=== PATIENT | male | born 1985 | race Caucasian/White ===

== ENCOUNTER 2024-11-05 10:30 | Emergency (ER) | payer SELFPAY ==
[2024-11-05 11:46] LABS: Absolute Basophils 0.1 K/uL (0-0.5); Absolute Eosinophils 0.3 K/uL (0-0.5); Absolute Monocytes 0.8 K/uL (0.1-1.3); Absolute Neutrophil 6.5 K/uL (1.8-8.0); Basophils % 0.9 % (0-1.3); Eosinophils % 2.6 % (0-4.4); Hematocrit 41.3 % (39.6-49.0); Hemoglobin 14.3 g/dL (13.6-17.9); Lymphocytes % 20.8 % (15.3-44.8); MCH 29.8 pg (27.0-35.0); MCHC 34.5 g/dL (32.0-36.0); MCV 86.4 fL (80-100); MPV 8.3 fL (7.6-11.3); Monocytes % 8.7 % (3.3-12.3); Nucleated Red Blood Cells % 0.1 % (0-0); Platelets 324 thou/uL (152-406); RBC Red Blood Cell Count 4.78 M/uL (4.33-5.43); Red Cell Distribution Width 13.6 % (12.1-15.2)
[2024-11-05 11:57] LABS: Specific Gravity 1.014 (1.005-1.030); Urine Bilirubin NEGATIVE (Negative); Urine Blood Negative (Negative); Urine Clarity Clear (Clear); Urine Color Colorless (Yellow); Urine Glucose NEGATIVE (Negative); Urine Ketones NEGATIVE (Negative); Urine Microscopic Reflex YN NO UMIC; Urine Nitrite NEGATIVE (Negative); Urine Protein NEGATIVE (Negative); Urine Urobilinogen Normal (Normal); Urine pH 6.5 (5.0-7.0)
--- NOTE | 2024-11-05 12:21 | RAD REPORT ---
EXAMINATION: CT Abdomen Pelvis Wo Contrast CLINICAL INDICATION: Male, 39 years old. FLANK PAIN TECHNIQUE: CT abdomen and pelvis was performed, without IV contrast, as per department protocol. Axia l, sagittal and coronal reconstructions were obtained. One or more of the following dose reduction techniques were used: Automated exposure control, adjustment of the mA and kV according to the patien t size, and iterative reconstruction. Unless otherwise specified, incidental findings do not require dedicated imaging follow-up. COMPARISON: No prior exam. FINDINGS: The lack of intravenous contrast limits the sensitivity of this exam for evaluation of solid visceral organs, vascular structures, and retroperitoneum. LOWER CHEST: The visualized lung bases are clear. LIVER: Diffuse hepatic parenchymal hypoattenuation suggesting steatosis, with mild hepatomegaly espec ially along the right lobe. Smooth contour.. No focal lesion. BILIARY SYSTEM: Gallbladder is decompressed which limits evaluation. No suspicious abnormalities. SPLEEN: Normal size. No focal lesion. PANCREAS: No mass, ductal dilation, or leslie-pancreatic fluid. ADRENALS: Normal; no mass. KIDNEYS AND URETERS: Normal size and contour. No hydronephrosis. URINARY BLADDER: Normal contour. GASTROINTESTINAL TRACT: No evidence of bowel obstruction, significant free fluid, free air or abscess . APPENDIX: Normal appendix. LYMPH NODES: No lymphadenopathy. MUSCULOSKELETAL: Disc osteophyte complex at L5-S1 asymmetric to the right, contributing to a degree o f central canal stenosis and bilateral moderate to severe neural foraminal narrowing worse on the right. ADDITIONAL FINDINGS: None. IMPRESSION: No acute abnormalities within the abdomen or pelvis, with evaluation limited by lack of IV contrast. Disc osteophyte complex at L5-S1 as above, possibly contributing to encroachment upon the neural stru ctures, not well evaluated. If this is felt to relate to the patient's symptoms, additional evaluation by lumbar spine MRI would be more helpful, which can be done on nonemergent basis. Diffuse hepatic steatosis.
[2024-11-05 12:40] LABS: Anion Gap 6.9 mEq/L (5.0-15.0); Bilirubin Total 0.4 mg/dL (0.2-1.0); Globulin 3.9 g/dL (2.3-3.5); Potassium 3.9 mEq/L (3.5-5.1); Protein, Total 7.9 g/dL (6.4-8.2)
[2024-11-05] MEDS ORDERED: KETOROLAC 30 MG/ML INJ ONE (12:43)
[2024-11-05] MEDS ORDERED: NA CHLORIDE 0.9% 500 ML ONE (12:43)
--- NOTE | 2024-11-05 13:27 | RAD REPORT ---
EXAMINATION: CT LUMBAR SPINE WITHOUT CONTRAST CLINICAL INDICATION: Male, 39 years old. LOWER BACK PAIN TECHNIQUE: Axial CT images were obtained through the lumbar spine in soft tissue and bone windows wit hout intravenous contrast. Coronal and Sagittal reformatted images were created from the data set. One or more of the following dose reduction techniques were used: Automated exposure control, adjustm ent of the mA and/ or kV according to patient size, and/or iterative reconstruction. Unless otherwise specified, incidental findings do not require dedicated imaging follow-up. COMPARISON: No prior exam. FINDINGS: For purposes of this dictation, it is assumed that there are 5 non rib-bearing lumbar type vertebrae, and the most caudal fully segmented lumbar vertebra is labeled L5. ALIGNMENT: The lumbar spine demonstrates normal alignment without scoliosis or spondylolisthesis. BONES: No significant soft tissue abnormalities. No aggressive osseous lesions. DISCS: Prominent disc protrusion suspected greater towards the left at L4-5. Large disc herniation pascal spected with some calcification L5-S1. LEVELS: There is likely moderate to significant canal narrowing at L4-5 and L5-S1. SOFT TISSUE: No soft tissue abnormalities. IMPRESSION: Moderate to significant lower lumbar spondylosis as detailed. Nonemergent MRI follow-up recommended.
--- NOTE | 2024-11-05 13:55 | EDPHYS ---
Physician Documentation [facility] Name: Romaine Archibald Age: 39 yrs Sex: Male : 1985 Arrival Date: 11/05/2024 Time: 10:30 Bed 16 Private MD: ED Physician Cheko Duran HPI: 11/05 12:42 This 39 yrs old Male presents to ER via Ambulatory with complaints of Back Pain, ci Urinary Problem. 12:42 Patient is a 39-year-old male with no PMH who presents to the ED with dysuria, ci frequency and suprapubic pressure that is radiating to the lower back. Patient took Azo with no improvement. Patient called telemetry doc and was prescribed Macrobid, has been taking this with no improvement. Denies any fever, trauma, history of kidney stones. No nausea/vomiting. Historical: - Allergies: 10:48 No Known Allergies; cm10 - Home Meds: 10:48 None [Active]; cm10 - PMHx: 10:48 None; cm10 - PSHx: 10:48 None; cm10 - Immunization history:: Adult Immunizations up to date. - Infectious Disease History:: Denies. - Social history:: Smoking status: Patient denies any tobacco usage or history of. Vital Signs: 10:46 BP 101 / 75; Pulse 77; Resp 15; Temp 98.3(O); Pulse Ox 97% on R/A; Weight 74.84 kg (R); cm10 Height 5 ft. 8 in. (R); Pain 7/10; 12:57 BP 130 / 84; Pulse 66; Resp 16 S; Pulse Ox 100% on R/A; kc6 10:46 Body Mass Index 25.09 (74.84 kg, 172.72 cm) cm10 10:46 Pain Scale: Adult cm10 MDM: 10:53 Medical Screening Exam initiated ci 11/05 11:09 Order name: CBC with Diff; Complete Time: 12:36 ci 11/05 11:09 Order name: CMP; Complete Time: 13:07 ci 11/05 11:09 Order name: Lipase; Complete Time: 13:07 ci 11/05 11:09 Order name: Urinalysis w/ reflexes; Complete Time: 12:36 ci 11/05 11:09 Order name: CT Abd/Pelvis - Without Contrast; Complete Time: 12:36 ci 11/05 12:40 Order name: CT Lumbar Spine Wo Con; Complete Time: 13:52 ci 11/05 13:52 Interpretation: Per Radiologist's finding(s): Moderate to significant lower lumbar ci spondylosis as detailed. Nonemergent MRI follow-up recommended. 11/05 11:09 Order name: IV Saline Lock; Complete Time: 11:40 ci 11/05 11:09 Order name: Labs collected and sent; Complete Time: 11:40 ci Administered Medications: 12:57 Drug: Ketorolac IVP 15 mg IVP once Route: IVP; Site: right forearm; kc6 13:15 Follow up: Response: No adverse reaction kc6 12:57 Drug: NS 0.9% IV 500 ml 500 ml IV at 1 bolus once; to be given as a bolus over 30 kc6 minutes Volume: 500 ml; Route: IV; Rate: 1 bolus; Site: right forearm; 14:08 Follow up: Response: No adverse reaction; IV Status: Completed infusion; IV Intake: kc6 500ml Disposition Summary: 11/05/24 13:54 Discharge Ordered Notes: Location: Home ci Condition: Stable ci Diagnosis - Spondylolysis, lumbar region ci - Acute cystitis without hematuria ci Followup: ci - With: Private Physician - When: 2 - 3 days - Reason: Recheck today's complaints, Re-evaluation by your physician Discharge Instructions: - Discharge Summary Sheet kc6 - Acute Back Pain, Adult ci - Dysuria ci Forms: - Work release form kc6 - Medication Reconciliation Form ci - Antibiotic Education ci - Prescription Opioid Use ci - Patient Portal Instructions ci - Leadership Thank You Letter ci Prescriptions: - Anaprox DS 550 mg Oral Tablet - take 1 tablet ORAL route every 12 hours As needed; 20 tablet; Refills: 0, ci Product Selection Permitted - Cephalexin 500 mg Oral Capsule - take 1 capsule ORAL route every 12 hours for 10 days; 20 capsule; Refills: 0, ci Product Selection Permitted - Pyridium 200 mg Oral Tablet - take 1 tablet ORAL route every 8 hours for 3 days; 9 tablet; Refills: 0, ci Product Selection Permitted Addendum: 13:00 Addendum: ROS: Positive back pain, dysuria, suprapubic pressure. Negative fever, c i trauma, paresthesia, bowel/bladder dysfunction Physical exam: Back atraumatic. No C/T/L bony midline tenderness. No step-offs or deformity, DTR 2/4 to bilateral lower extremity. Abdomen: Soft, nondistended with mild suprapubic tenderness to palpation. No rebound tenderness or rigidity, no CVA tenderness. DDx considered but not limited to UTI, pyelonephritis, nephrolithiasis, muscle strain/sprain, fracture ED course: Patient arrived to the ED hemodynamically stable and in no acute distress. CBC with no leukocytosis or anemia, currently being treated for UTI with Macrobid. CT abdomen/pelvis was obtained for further investigation, no kidney stones, no SBO or perforation noted. Lumbar spondylosis noted on CT abdomen. Dedicated CT lumbar spine was obtained which showed moderate spondylosis with recommendations for nonemergent MRI. Patient was given pain meds in the ER with significant improvement. Ambulatory with a steady gait, doubt cauda equina, discitis or epidural abscess. Stable for discharge with close outpatient follow-up with neurosurgery, PCP and urology. Instructed to return to ER for new or worsening symptoms. Patient verbalized understanding and agrees with plan.. Signatures: Dispatcher [employer] EDMS Thelma Triplett RN RN kc6 Frances Hollingsworth RN RN cm10 Cheko Duran Corrections: (The following items were deleted from the chart) 11:10 11:10 Abdomen Pelvis Wo Con+CT.RAD.BRZ ordered. EDMS EDMS 12:40 12:40 Spine Lumbar Wo Con+CT.RAD.BRZ ordered. EDMS EDMS
--- NOTE | 2024-11-05 13:55 | ER ---
Nurse's Notes [facility] Name: Romaine Archibald Age: 39 yrs Sex: Male : 1985 Arrival Date: 11/05/2024 Time: 10:30 Bed 16 Private MD: Diagnosis: Spondylolysis, lumbar region;Acute cystitis without hematuria Presentation: 11/05 10:46 Chief complaint: Patient states: low back pain onset 2 weeks ago. pt reports lower cm10 abdominal pressure, urinary frequency. Pt reports that he had a teledoc appointment and was placed on macrobid with no relief. Coronavirus screen: Client denies travel out of the [place] in the last 14 days. Ebola Screen: Patient denies travel to an Ebola-affected area in the 21 days before illness onset. Initial Sepsis Screen: Does the patient meet any 2 criteria? No. Patient's initial sepsis screen is negative. Does the patient have a suspected source of infection? No. Patient's initial sepsis screen is negative. Risk Assessment: Do you want to hurt yourself or someone else? Patient reports no desire to harm self or others. Onset of symptoms is unknown. 10:46 Method Of Arrival: Ambulatory cm10 10:46 Acuity: LINNEA 3 cm10 Triage Assessment: 10:48 General: Appears uncomfortable, Behavior is calm, cooperative. Pain: Complains of pain cm10 in low back area, right lower quadrant and left lower quadrant Pain currently is 7 out of 10 on a pain scale. Quality of pain is described as pressure. Neuro: No deficits noted. Level of Consciousness is awake, alert, obeys commands, Oriented to person, place, time, situation, Appropriate for age. Respiratory: No deficits noted. Airway is patent Respiratory effort is even, unlabored, Respiratory pattern is regular, symmetrical. Historical: - Allergies: 10:48 No Known Allergies; cm10 - Home Meds: 10:48 None [Active]; cm10 - PMHx: 10:48 None; cm10 - PSHx: 10:48 None; cm10 - Immunization history:: Adult Immunizations up to date. - Infectious Disease History:: Denies. - Social history:: Smoking status: Patient denies any tobacco usage or history of. Screenin:40 [facility] [place] ED Fall Risk Assessment (Adult) History of falling in the last 3 months, kc6 including since admission No falls in past 3 months (0 pts) Confusion or Disorientation No (0 pts) Intoxicated or Sedated No (0 pts) Impaired Gait No (0 pts) Mobility Assist Device Used No (0 pt) Altered Elimination No (0 pt) Score/Fall Risk Level 0 - 2 = Low Risk Oriented to surroundings, Maintained a safe environment, Educated pt \T\ family on fall prevention, incl call for assistance when getting out of bed. Abuse screen: Denies threats or abuse. Denies injuries from another. Nutritional screening: No deficits noted. Tuberculosis screening: No symptoms or risk factors identified. Assessment: 11:40 General: Appears in no apparent distress. comfortable, well groomed, well developed, kc6 Behavior is calm, cooperative, appropriate for age, Reports feeling ill for > 3 days, Denies fever, chills. Pain: Complains of pain in suprapubic area and left lower quadrant and right lower quadrant and low back area Pain does not radiate. Pain currently is 7 out of 10 on a pain scale. Quality of pain is described as sharp. Neuro: Level of Consciousness is awake, alert, obeys commands, Oriented to person, place, time, situation, Appropriate for age. Cardiovascular: Capillary refill < 3 seconds. Respiratory: Airway is patent Trachea midline Respiratory effort is even, unlabored, Respiratory pattern is regular, symmetrical. GI: Abdomen is round non-distended, Bowel sounds present X 4 quads. Abd is soft X 4 quads Patient currently denies diarrhea, nausea, vomiting. : Urine is clear, Reports cramping, lower back urinary frequency, Denies burning with urination, pain with urination. EENT: No signs and/or symptoms were reported regarding the EENT system. Derm: No signs and/or symptoms reported regarding the dermatologic system. Skin is intact, is healthy with good turgor, Skin is pink, warm \T\ dry. Musculoskeletal: No signs and/or symptoms reported regarding the musculoskeletal system. Circulation, motion, and sensation intact. Range of motion: intact in all extremities. 12:28 Reassessment: Patient appears in no apparent distress at this time. No changes from kc6 previously documented assessment. Patient and/or family updated on plan of care and expected duration. Pain level reassessed. Patient is alert, oriented x 3, equal unlabored respirations, skin warm/dry/pink. 14:09 Reassessment: Patient appears in no apparent distress at this time. No changes from kc6 previously documented assessment. Patient and/or family updated on plan of care and expected duration. Pain level reassessed. Patient is alert, oriented x 3, equal unlabored respirations, skin warm/dry/pink. Vital Signs: 10:46 BP 101 / 75; Pulse 77; Resp 15; Temp 98.3(O); Pulse Ox 97% on R/A; Weight 74.84 kg (R); cm10 Height 5 ft. 8 in. (R); Pain 7/10; 12:57 BP 130 / 84; Pulse 66; Resp 16 S; Pulse Ox 100% on R/A; kc6 10:46 Body Mass Index 25.09 (74.84 kg, 172.72 cm) cm10 10:46 Pain Scale: Adult cm10 ED Course: 10:32 Patient arrived in ED. mr 10:48 Triage completed. cm10 10:49 Arm band placed on right wrist. Patient placed in waiting room. cm10 10:52 Cheko Duran is Attending Physician. ci 11:07 Thelma Triplett, RN is Primary Nurse. kc6 11:28 CT Abd/Pelvis - Without Contrast In Process Unspecified. EDMS 11:40 Patient has correct armband on for positive identification. Bed in low position. Call kc6 light in reach. Side rails up X 1. Pulse ox on. NIBP on. Door closed. Noise minimized. Lights dimmed. Pillow given. Verbal reassurance given. 11:40 Initial lab(s) drawn, by me, sent to lab. Urine collected: clean catch specimen, clear. kc6 Inserted saline lock: 20 gauge in right forearm, using aseptic technique. Blood collected. Flushed with 10 mL NS. Patient maintains SpO2 saturation greater than 95% on room air. 13:08 CT Lumbar Spine Wo Con In Process Unspecified. EDMS 14:31 No provider procedures requiring assistance completed. IV discontinued, intact, kc6 bleeding controlled, No redness/swelling at site. Pressure dressing applied. Administered Medications: 12:57 Drug: Ketorolac IVP 15 mg IVP once Route: IVP; Site: right forearm; kc6 13:15 Follow up: Response: No adverse reaction 6 12:57 Drug: NS 0.9% IV 500 ml 500 ml IV at 1 bolus once; to be given as a bolus over 30 kc6 minutes Volume: 500 ml; Route: IV; Rate: 1 bolus; Site: right forearm; 14:08 Follow up: Response: No adverse reaction; IV Status: Completed infusion; IV Intake: kc6 500ml Medication: 14:31 VIS not applicable for this client. kc6 Intake: 14:08 IV: 500ml; Total: 500ml. kc6 Outcome: 13:54 Discharge ordered by . ci 14:31 Discharged to home ambulatory, kc6 14:31 Condition: good 14:31 Discharge instructions given to patient, Instructed on discharge instructions, follow up and referral plans. medication usage, Demonstrated understanding of instructions, follow-up care, medications, Prescriptions given X 3, 14:32 Patient left the ED. kc6 Signatures: Dispatcher [employer] EDMS Mary Najera, Reg Reg mr Thelma Triplett RN RN kc6 Frances Hollingsworth RN RN cm10 Cheko Duran Corrections: (The following items were deleted from the chart) 10:48 10:46 BP 202 / 86; Pulse 77bpm; Resp 15bpm; Pulse Ox 97% RA; Temp 98.3F Oral; 74.84 kg cm10 Reported; Height 5 ft. 8 in. Reported; BMI: 25.0; Pain 7/10, Adult; cm10
[2024-11-05 14:38] VITALS: TEMP 98.3
[2024-11-05 14:39] VITALS: BP 130/84; O2SAT 100
== END 2024-11-05 14:32 | disposition home or self-care (01) ==
LOC: ER 10:30
DX: M47.816 Spondylosis without myelopathy or radiculopathy, lumbar region (principal); N30.00 Acute cystitis without hematuria
CPT/HCPCS: 36415; 72131; 74176; 80053; 81003; 83690; 85025; 96361; 96374; 99284; J7040